=== PATIENT | male | born 1970 | race Caucasian/White ===

== ENCOUNTER → 2016-10-22 | Outpatient (CLI) | payer OTHER ==
[~2016-10-22] MED LIST: BUSP5TAB59 PO; CALC500C70 PO; ESCI10TA17 PO; IBUP-1428 PO; MULT-506 PO
[2016-10-22 17:06] LABS: CHOLESTEROL/HDL RATIO 4.6; THYROID STIMULATING HORMONE 1.36 uIu/ml (0.300-4.500)
== END | disposition home or self-care (01) ==
LOC: C.LABBC 14:31
PROVIDERS: ATTEND Family Medicine
DX: E78.5 Hyperlipidemia, unspecified (principal); Z13.1 Encounter for screening for diabetes mellitus; R63.5 Abnormal weight gain

== ENCOUNTER → 2016-12-11 | Outpatient (CLI) | payer OTHER ==
--- NOTE | 2016-12-11 15:16 | DIAGNOSTIC IMAGING REPORT ---
L-SPINE MIN 4 VIEWS ROUTINE CLINICAL HISTORY: Low back pain COMPARISON STUDY: No previous studies for comparison. FINDINGS: There is a grade 1 spondylolisthesis of L4 on L5. No acute fractures are visualized. There are no erosive or destructive changes. IMPRESSION: 1. No acute fractures 2. Grade 1 spondylolisthesis of L4 on L5. Electronically signed by: Benjamin Davidson M.D. 12/11/2016 3:14 PM Dictated Date/Time: 12/11/2016 3:13 PM
== END | disposition home or self-care (01) ==
LOC: C.RADBC 14:56
PROVIDERS: ATTEND Family Medicine
DX: M51.36 Other intervertebral disc degeneration, lumbar region (principal); M43.16 Spondylolisthesis, lumbar region

== ENCOUNTER → 2017-02-16 | Outpatient (CLI) | payer OTHER ==
[~2017-02-16] MED LIST changes: -BUSP5TAB59 PO; -ESCI10TA17 PO; +GADAVIST IV PRN
--- NOTE | 2017-02-16 18:34 | DIAGNOSTIC IMAGING REPORT ---
Study: MRI pelvis HISTORY: Pain. Posttraumatic pain. FINDINGS: Signal characteristics the osseous structures are unremarkable. The hips are symmetric. No significant joint effusion. No abnormal mass or collection. Sacroiliac joints are unremarkable. Soft tissue structures of the pelvis are unremarkable. There is no evidence for adenopathy mass or collection. Bowel pattern is nonobstructive. IMPRESSION: Negative study Electronically signed by: Fritz Cooley M.D. 02/16/2017 6:33 PM Dictated Date/Time: 02/16/2017 6:32 PM
--- NOTE | 2017-02-16 18:56 | DIAGNOSTIC IMAGING REPORT ---
MRI right knee RIGHT LOWER EXTREMITY JOINT COM CLINICAL HISTORY: M21.371 Right foot dropG57.30 Peroneal neuropathy Right knee for Right pain TECHNIQUE: MRI multi axial acquisition COMPARISON STUDY: None FINDINGS: Signal characteristics the osseous structures are unremarkable. There is no bone marrow replacing process. There is minimal degenerative change of the matrix of the articular services of the lateral tibial plateau. There is no joint effusion. There is no popliteal cyst. Anterior and posterior cruciate ligaments are intact. Collateral ligaments are unremarkable. The menisci are within normal limits. IMPRESSION: Mild degenerative change of the articular surface lateral tibial plateau. 2. Otherwise negative study. 3. No evidence for abnormal postcontrast enhancement. Electronically signed by: Fritz Cooley M.D. 02/16/2017 6:54 PM Dictated Date/Time: 02/16/2017 6:50 PM
== END | disposition home or self-care (01) ==
LOC: C.MRI 16:16
PROVIDERS: ATTEND Psychiatry & Neurology Neurology
DX: G57.30 Lesion of lateral popliteal nerve, unspecified lower limb (principal); M21.371 Foot drop, right foot; M54.30 Sciatica, unspecified side

== ENCOUNTER → 2017-03-04 | Outpatient (CLI) | payer OTHER ==
[~2017-03-04] MED LIST changes: +BUSP5TAB59 PO; +ESCI10TA17 PO; -GADAVIST IV PRN; -IBUP-1428 PO
[2017-03-04 17:28] LABS: BASO % 0.4 %; BASO ABS # 0.03 K/uL (0-0.2); COMPLETE YES; EOS % 2.1 %; HEMATOCRIT 47.2 % (42-52); IG% 0.1 %; LYMPH % 33.8 %; LYMPH ABS # 2.41 K/uL (1.2-3.4); MEAN CELL VOLUME 87.4 fL (80-100); MEAN CORPUSCULAR HEMOGLOBIN 29.3 pg (25-34); MEAN CORPUSCULAR HGB CONC 33.5 g/dl (32-36); MEAN PLATELET VOLUME 10.3 fL (7.4-10.4); MONO % 11.8 %; NEUT % 51.8 %; PLATELET COUNT 244 K/uL (130-400); WHITE BLOOD COUNT 7.14 K/uL (4.8-10.8)
== END | disposition home or self-care (01) ==
LOC: C.LABBC 14:44
PROVIDERS: ATTEND Orthopaedic Surgery Orthopaedic Surgery of the Spine
DX: Z01.818 Encounter for other preprocedural examination (principal)

== ENCOUNTER 2017-04-01 09:46 | Inpatient (IN) | payer OTHER ==
[2017-03-02 15:59] VITALS: BMI 41.0
[~2017-04-01] VITALS: Ht 188 cm; Wt 149.5 kg
[2017-04-01] VITALS (11 sets, daily range): BP systolic 118–150; BP diastolic 71–92; PULSE 72–90; TEMP 36.4–37; O2SAT 95–100; Ht 188 cm; Wt 149.5 kg
[~2017-04-01 09:46] MED LIST changes: +ATROPINE SULFATE 0.1 MG/ML 5ML SYR IV PRN; +CEFAZOLIN 3000 MG/65 ML D5W 65 ML IV SCH; +DEXAMETHASONE SOD INJ 4 MG/ML VIAL ONE; +EpHEDrine SULFATE INJ 50 MG/ML AMP IV PRN; +FENTANYL CITRATE INJ 50 MCG/1 ML 2 ML VIAL IV PRN; +FENTANYL CITRATE INJ 50 MCG/1 ML 2 ML VIAL ONE; +GLYCOPYRROLATE INJ 0.2 MG/ML VIAL ONE; +HYDROmorphone INJ 1 MG/ML SYR IV PRN; +LABETALOL HCL IV 5 MG/ML 20ML IV PRN; +LACTATED RINGER'S 1000ML 1,000 ML IV SCH; +LACTATED RINGER'S 1000ML IV SCH; +LARYING-O-JET KIT (LTA) ONE; +LIDOCAINE HCL 2% 2 ML VIAL (20MG/ML) ONE; +MEPERIDINE HCL 25 MG/ML CARP IV PRN; +MIDAZOLAM HCL 1 MG/ML 2ML VIAL ONE; +NEOSTIGMINE METHYLSULFATE 5 MG/5 ML SYR ONE; +ONDANSETRON INJ 2 MG/ML 2 ML VIAL IV PRN; +ONDANSETRON INJ 2 MG/ML 2 ML VIAL ONE; +PROPOFOL IV EMULSION 10 MG/ML 20 ML VIAL IV ONE; +ROCURONIUM BROMIDE 10 MG/ML 5 ML VIAL ONE; +SODIUM CHLORIDE 0.9% 1000ML 1,000 ML IV SCH
[2017-04-01] MEDS ORDERED: GELATIN SPONGE SZ 100 ONE ×2 (09:57→11:35)
[2017-04-01] MEDS ORDERED: THROMBIN FOR SOLN 20000 UNIT KIT ONE (09:57)
[2017-04-01] MEDS ORDERED: BACITRACIN 50000 UNIT VIAL ONE (09:58)
[2017-04-01] MEDS ORDERED: VANCOMYCIN HCL 1000MG/20ML VIAL ONE (09:58)
[2017-04-01] MEDS ORDERED: BUPIVACAINE/EPINEPHRINE 0.5% MPF 1:200,000 10 ML VIAL ONE (09:58)
[2017-04-01] MEDS ORDERED: HYDROmorphone INJ 2 MG/ML SYR/VIAL ONE (11:19)
[2017-04-01] MEDS ORDERED: ROCURONIUM BROMIDE 10 MG/ML 5 ML VIAL ONE (11:21)
[2017-04-01] MEDS ORDERED: EpHEDrine SULFATE 50MG/5ML SYR ONE (11:23)
--- NOTE | 2017-04-01 13:08 | DIAGNOSTIC IMAGING REPORT ---
LUMBAR SPINE, INTRAOPERATIVE FLUOROSCOPY HISTORY: L4-L5 interbody fusion. FLUOROSCOPY TIME: 7 seconds. FINDINGS: Intraoperative fluoroscopy was provided for the lumbar spine. A single fluoroscopic spot image of the lower lumbar spine. Posterior decompression and fusion at L4-L5 with pedicle screws and rods. The hardware appears intact. IMPRESSION: Fluoroscopy provided for a L4-5 posterior decompression and fusion. Electronically signed by: Roberto Art M.D. 04/01/2017 1:06 PM Dictated Date/Time: 04/01/2017 1:05 PM
[2017-04-01] MEDS ORDERED: SODIUM CHLORIDE 0.9% 1000ML 1,000 ML IV SCH (13:37)
--- NOTE | 2017-04-01 13:38 | [facility] Post Operative Brief Note ---
Immediate Operative Summary Operative Date Apr 01, 2017. Pre-Operative Diagnosis Lumbar degenerative disc disease Post-Operative Diagnosis Lumbar degenerative disc disease Procedure(s) Performed L4-L5 Posterior Lumbar Interbody Fusion Surgeon Dr. Eliazar Felipe [employer] Consultant Surgeon(s) David Mancia PA-C Estimated Blood Loss 250ml Findings spondy L4-5 Specimens None per surgeon Complication(s) None Disposition Recovery Room / PACU
--- NOTE | 2017-04-01 13:42 | History and Physical ---
History & Physical Date Apr 01, 2017. History of Present Illness The patient is a 46 year old male with complaints of back and leg pain Past Medical/Surgical History Medical Problems: (1) HTN (hypertension) (2) Lumbar disc herniation (3) No chronic problems Surgical Problems: (1) No history of previous surgery Allergies Coded Allergies: No Known Allergies (Unverified , 04/01/17) Home Medications Scheduled Calcium/Vitamin D (Os-Christian 500 Plus D), 1 TAB PO QAM Escitalopram (Lexapro), 10 MG PO QPM Multivitamin (Multivitamin), 1 TAB PO QAM Scheduled PRN Buspirone Hcl (Buspirone Hcl), 1 TAB PO BID PRN for ANXIETY Physical Examination Skin: warm/dry Eyes: normal inspection ENT: normal ENT inspection Head: normocephalic Neck: supple Respiratory/Chest: lungs clear Cardiovascular: regular rate, rhythm Abdomen / GI: normal bowel sounds Back: normal inspection Extremities: normal inspection Genitourinary - Male: normal male genitalia Diagnosis stenosis and listhesis l4-5 ASA Classification: ASA Class III Plan of Treatment plif l4-5
[2017-04-01] MEDS ORDERED: ONDANSETRON INJ 2 MG/ML 2 ML VIAL IV PRN (13:45)
[2017-04-01] MEDS ORDERED: PROMETHAZINE HCL INJ 12.5 MG in SODIUM CHLORIDE 0.9% 50ML 50 ML IV PRN (13:45)
[2017-04-01] MEDS ORDERED: LORAZEPAM INJ 1 MG in SYRINGE 0.5 ML IV PRN (13:45)
[2017-04-01] MEDS ORDERED: NALOXONE HCL 0.4 MG/1 ML VIAL/CARP IV PRN (13:45)
[2017-04-01] MEDS ORDERED: LORAZEPAM 1 MG TAB PO PRN (13:45)
[2017-04-01] MEDS ORDERED: METOCLOPRAMIDE HCL INJ 5 MG/ML 2 ML VIAL IV PRN (13:45)
[2017-04-01] MEDS ORDERED: MAGNESIUM HYDROXIDE SUSP 30 ML UDC PO PRN (13:45)
[2017-04-01] MEDS ORDERED: ACETAMINOPHEN 325 MG TAB PO PRN (13:45)
[2017-04-01] MEDS ORDERED: HYDROmorphone HCL 0.5MG/ML 50 ML CASSETTE ONE (13:51)
--- NOTE | 2017-04-01 14:03 | OPERATIVE REPORT ---
DATE OF OPERATION: 04/01/2017 PREOPERATIVE DIAGNOSIS: Stenosis, spondylolisthesis, lumbar spine L4-L5. POSTOPERATIVE DIAGNOSIS: Same. PROCEDURE: Include a decompression laminectomy, foraminotomy, L4-L5 lumbar spine, pedicle screw instrumentation L4-L5 lumbar spine, discectomy lumbar spine L4-L5, posterior lumbar interbody fusion and circumferential 360 fusion. SURGEON: Dr. Felipe. INVESTOR RELATIONS ASSOCIATE: David Mancia PA-C. COMPLICATIONS: 0. PROCEDURE: The patient was taken to the operating room, general intubated and anesthetic provided to the patient. Simmons catheter administered. Antibiotics administered. He was placed prone with care. He was morbidly obese but we got him safely placed on the Edward table. We made skin incision, fascial incision and came down on the spine. It was obvious he had a spondylosis, complete pars defect of the spine. We took out the posterior elements doing a Hough procedure, foraminotomies, partial facetectomies. We decompressed each nerve root which would be 4-5 left, 4-5 right. I was pleased with the decompression. We safely got pedicle screws into the patient as well, 5 on the right, 4 on the right and then the opposite side as well. We carefully took the dura in a medial direction. I did a formal discectomy, able to get an interbody device into the construct measuring 26 mm in length, 11 mm in height and 10 mm in width. We then bone grafted out over the transverse processes well, completed the 360 fusion. We locked down the construct. The construct was by the eeden. Irrigated, closed in layers over vancomycin powder, Hemovac drain with 1 Vicryl suture, 2-0 Vicryl suture over vancomycin powder, 3-0 nylon on the skin, sterile dressing applied. The patient was then returned to PACU in improved stable condition. No apparent complication. Sponge and needle count correct. Implants used were by eeden. I attest to the content of the Intraoperative Record and any orders documented therein. Any exception s are noted below.
[2017-04-01] MEDS: HYDROmorphone HCL 0.5MG/ML 50 ML CASSETTE IV PRN ×3 (14:39→23:24)
--- NOTE | 2017-04-01 14:52 | Anesthesiology Progress Note ---
Anesthesia Post Op Note Date & Time Apr 01, 2017 at 14:51 Vital Signs Pain Intensity: 5.0 Vital Signs Past 12 Hours Date Time Temp Pulse Resp B/P (MAP) Pulse Ox O2 Delivery O2 Flow Rate FiO2 04/01/17 14:47 99 Nasal Cannula 4.0 04/01/17 14:35 36.9 76 18 125/74 (91) 100 Nasal Cannula 4.0 04/01/17 14:25 77 13 134/66 98 Nasal Cannula 4 04/01/17 14:15 36.2 66 20 113/63 93 Nasal Cannula 4 04/01/17 14:05 70 16 131/68 97 Nasal Cannula 4 04/01/17 13:55 79 20 140/64 97 Nasal Cannula 4 04/01/17 13:45 83 16 133/61 95 Oxymask 10 04/01/17 13:36 36.1 75 20 134/69 96 Oxymask 10 04/01/17 10:07 37 73 20 150/92 (111) 95 Room Air Notes Mental Status: alert / awake / arousable, participated in evaluation Pt Amnestic to Procedure: Yes Nausea / Vomiting: adequately controlled Pain: adequately controlled Airway Patency, RR, SpO2: stable & adequate BP & HR: stable & adequate Hydration State: stable & adequate Anesthetic Complications: no major complications apparent
[2017-04-01 15:08] LABS: HEMATOCRIT 44.1 % (42-52)
[2017-04-01] MEDS: SODIUM CHLORIDE 0.9% 1000ML 1,000 ML IV SCH (15:56)
[2017-04-01] MEDS: KETOROLAC TROMETHAMINE 30 MG/ML VIAL IV SCH ×2 (16:11→22:19)
[2017-04-01] MEDS: DEXAMETHASONE INJ 10 MG in SYRINGE 0 ML IV SCH (16:11)
[2017-04-01] MEDS: CEFAZOLIN IV 2,000 MG in DEXTROSE 5% 50ML 50 ML IV SCH (17:56)
[2017-04-01] MEDS: ESCITALOPRAM OXALATE 10 MG TAB PO SCH (22:18)
[2017-04-02] VITALS (8 sets, daily range): BP systolic 114–138; BP diastolic 68–81; PULSE 58–86; TEMP 36.5–36.8; O2SAT 92–99
[2017-04-02] MEDS: DEXAMETHASONE INJ 10 MG in SYRINGE 0 ML IV SCH ×4 (00:17→23:40)
[2017-04-02] MEDS: CEFAZOLIN IV 2,000 MG in DEXTROSE 5% 50ML 50 ML IV SCH ×2 (02:58→10:12)
[2017-04-02] MEDS: SODIUM CHLORIDE 0.9% 1000ML 1,000 ML IV SCH (02:58)
[2017-04-02] MEDS: KETOROLAC TROMETHAMINE 30 MG/ML VIAL IV SCH ×3 (02:58→16:02)
[2017-04-02] MEDS ORDERED: DC PCA SCH (06:00)
[2017-04-02] MEDS ORDERED: BISACODYL 5 MG TABEC PO PRN (06:00)
[2017-04-02] MEDS ORDERED: BISACODYL 10 MG SUPP PR PRN (06:00)
[2017-04-02] MEDS ORDERED: NURSING DECISION MEDICATION ORDER SCH (06:45)
[2017-04-02] MEDS ORDERED: HYDROmorphone INJ 2 MG/ML SYR/VIAL IV PRN ×2 (07:15→08:00)
[2017-04-02] MEDS ORDERED: OXYCODONE/ACETAMINOPHEN 5-325 TAB PO PRN ×4 (07:15→08:00)
[2017-04-02] MEDS ORDERED: HYDROmorphone INJ 1 MG/ML SYR IV PRN ×2 (07:15→08:00)
--- NOTE | 2017-04-02 08:19 | Anesthesiology Progress Note ---
Anesthesia Post Op Note Date & Time Apr 02, 2017 at 08:19 Vital Signs Vital Signs Past 12 Hours Date Time Temp Pulse Resp B/P (MAP) Pulse Ox O2 Delivery O2 Flow Rate FiO2 04/02/17 07:56 96 Room Air 04/02/17 07:48 Room Air 04/02/17 07:36 36.7 86 18 118/74 (89) 96 Room Air 04/02/17 06:20 94 Room Air 04/02/17 03:04 36.6 62 16 123/68 (86) 99 Nasal Cannula 4.0 04/02/17 00:13 Nasal Cannula 4.0 04/01/17 23:32 36.5 73 16 130/74 (92) 96 Nasal Cannula 4.0 Notes Mental Status: alert / awake / arousable, participated in evaluation Pt Amnestic to Procedure: Yes Nausea / Vomiting: adequately controlled Pain: adequately controlled Airway Patency, RR, SpO2: stable & adequate BP & HR: stable & adequate Hydration State: stable & adequate Anesthetic Complications: no major complications apparent
[2017-04-02] MEDS: POLYETHYLENE (MIRALAX) 17 GM PACK PO SCH (08:23)
[2017-04-02] MEDS: CALCIUM 600MG + VIT D 400 IU TAB PO SCH (08:23)
[2017-04-02] MEDS: MULTIVITAMIN TAB PO SCH (08:23)
--- NOTE | 2017-04-02 12:34 | Discharge Instructions ---
Discharge Instructions Date of Service Apr 02, 2017. Admission Reason for Admission: Lumbar Spinal Stenosis spondylolisthesis Discharge Discharge Diagnosis / Problem: and spondylolistesis Discharge Goals Goal(s): Improve function Activity Recommendations Activity Limitations: as noted below Lifting Limitations: gradually increase as tolerated, until after follow-up appointment Exercise/Sports Limitations: until after follow-up appointment May Resume Sexual Activity: after follow-up appointment Shower/Bathe: keep incision dry . Instructions / Follow-Up Instructions / Follow-Up MEDICATIONS: Please take your prescriptions as instructed at your pre-op appointment. SPECIAL CARE: The following information is intended to answer some of the common questions and concerns regarding your surgery. Each patient is an individual and receives individual counselling throughout the course of treatment, from diagnosis to surgery all the way through recovery. What follows is not an exhaustive list, but should be a useful guide to some of the common questions and concerns patients have regarding their surgeries. These are not provided to keep you from calling us; rather, they give you something accurate and concrete to reference as you recover from your procedure. If you need us, we are available to you. As always, if you are not sure about something, call us at [phone]. MEDICAL EMERGENCIES: For these conditions, call 911 or go to your local hospital-based Emergency Department - not [facility] or equivalent. * Paralysis * Severe chest pain or difficulty breathing * Swelling or redness of either leg Spine procedures can be rather complex and though complications are rare, they do occur. In such cases, effective advice regarding emergency situations cannot always be addressed over the telephone. You may be referred to the emergency department for more effective management of your problem. Activity Limitations: It is important to give your body time to heal, so please limit your activities : * In general, don't do anything that moves your spine too much. You should avoid contact sports, twisting or heavy lifting while you recover. * 5-10 pounds is all you should attempt to lift. * You should not plan on driving for approximately 3 weeks and you should avoid traveling more than 30-45 minutes at a time. Longer trips should be broken down with walking breaks spaced appropriately. * Physical therapy is not usually required. * Walking and good posture practices will help you recover and regain your function. * Avoid straining or sudden changes in position. * In general, the goal is to take it easy and recover. Don't cause any new problems. Just relax. Showers: * Do not take a bath, use a Jacuzzi or hot tub or otherwise submerge your incision. * It is usually safe to take a shower 4-5 days after your surgery. * Your incision does not require any special creams or ointments. * Simply clean it with soap and water, dry and re-dress with a clean bandage afterwards. Incision: * Keep incision clean, dry and protected until your first follow-up appointment. * Some amount of drainage and redness is normal. Any drainage should be fairly clear and not have a foul odor. * If you feel anything is wrong or you have excessive drainage, please call us. * Your stitches and taiwo will be removed 10-14 days after your surgery. At the time of your first post-op visit. * Neck surgeries are typically closed with a suture underneath the skin. The steri-strips over the incision should be maintained until we see you in the office. Bracing: * You may be provided with a back or neck brace to encourage good posture and prevent injury. It will remind you not to do too much as you heal and will alert others to the fact that you have had a surgery. * Back braces may be removed for showers and when you are resting at home. They must be worn when you are walking around for any period of time or for travel. * For neck surgery, you will likely be provided with two cervical collars. The soft collar ([place] or foam rubber) is worn most commonly throughout the day and while sleeping. The plastic collar (provided at the hospital) is for showering/bathing. * Except while eating, collars should remain in place. More specifically, bracing is provided for a purpose and should be worn. * Please obtain your brace or collars prior to your operation and bring them to the hospital with you on the day of surgery. * You should also bring your collars to your post-op appointment with Dr. Felipe. You should always take good care of your body and practice healthy habits, especially following surgery. You should: * Follow your doctor's treatment plan * Sit and stand properly with good posture (ears over shoulders, shoulders over hips) Don't slouch * Learn to lift correctly * Exercise regularly (low-impact aerobic exercise is especially good, but check with your doctor first) * Generally, be up and walking for 5-10 minutes at a time at least 3-4 times per day from the day you get home * Increasing walking to tolerance until you can walk for 20-30 minutes at a time * Attain and maintain a healthy body weight * Eat healthy foods ( a well-balanced, low-fat diet rich in fruits and vegetables) and get enough calcium * Avoid excessive use of alcohol When to call our office - If you notice any of the following: * Increased pain not relieve by pain medicine * Fevers greater then 100 degrees F, chills or flu symptoms * Increased redness around incision * Drainage from the incision that is not clear * Any foul smelling drainage * Swelling or fluid collection beneath the skin Miscellaneous: * In the hospital, you may be given a walker or cane for support while walking. These are temporary needs and are intended to prevent injuries due to falls. You may discontinue them when you feel strong and steady enough on your feet. * Sleep in a comfortable position. We find that many patients find a lounge chair or recliner with several pillows to be beneficial in the early post-operative period. * The support stockings should be used for 7-10 days and may be discontinued when you are back to walking more and conducting usual household activities. No problem is insignificant. We are here to help you and get you well. Contact us at [phone]. Definitions: Foraminotomy: If part of the disc or a bone spur (osteophyte) is pressing on a nerve as it leaves the vertebra (through an exit called the foramen), a foraminotomy may be done. Otomy means "to make an opening." A foraminotomy is making the opening of the foramen larger, so the nerve can exit without being compressed. Laminotomy: Similar to the foraminotomy, a laminotomy makes a larger opening, this time in your bony plate protecting your spinal canal and spinal cord (the lamina). The lamina may be pressing on your nerve, so the surgeon may make more room for the nerves using a laminotomy. Laminectomy: Sometimes, a laminotomy is not sufficient. The surgeon may need to remove all or part of the lamina. This procedure is called a laminectomy. This can often be done at many levels without any harmful effects. Current Hospital Diet Patient's current hospital diet: Regular Diet Discharge Diet Recommended Diet: Regular Diet Procedures Procedures Performed: L4-L5 Posterior Lumbar Interbody Fusion Pending Studies Studies pending at discharge: no Medical Emergencies . Who to Call and When: Medical Emergencies: If at any time you feel your situation is an emergency, please call 911 immediately. . Non-Emergent Contact Non-Emergency issues call your: Primary Care Provider . "Provider Documentation" section prepared by Eliazar Felipe. . VTE Core Measure Inpt VTE Proph given/why not?: Treatment not indicated
[2017-04-02] MEDS: ESCITALOPRAM OXALATE 10 MG TAB PO SCH (22:12)
[2017-04-03 07:17] VITALS: BP 146/87; PULSE 69; TEMP 36.4; O2SAT 94
[2017-04-03] MEDS: CALCIUM 600MG + VIT D 400 IU TAB PO SCH (08:13)
[2017-04-03] MEDS: POLYETHYLENE (MIRALAX) 17 GM PACK PO SCH (08:13)
[2017-04-03] MEDS: MULTIVITAMIN TAB PO SCH (08:13)
--- NOTE | 2017-04-03 08:24 | DISCHARGE SUMMARY ---
SUBJECTIVE: Minimal complaints of pain. Alert, oriented. No chest pain, shortness of breath. Bowel and bladder function appropriately. ASSESSMENT: Status post lumbar spine fusion, doing well in the short run. DISPOSITION: Includes discharge home today. Instructions and precautions provided, prescriptions provided. Followup examination will be in the office in approximately 2 weeks.
[2017-04-03 08:33] VITALS: BP 146/87; PULSE 69; TEMP 36.4; O2SAT 94
== END 2017-04-03 10:45 | disposition home or self-care (01) | DRG 460 ==
LOC: C.ACU 09:46 → C.3E 13:43 → ENRESERV 14:20
PROVIDERS: ADMIT Orthopaedic Surgery Orthopaedic Surgery of the Spine; ATTEND Orthopaedic Surgery Orthopaedic Surgery of the Spine
PROC: 0SG00AJ Fusion of Lumbar Vertebral Joint with Interbody Fusion Device, Posterior Approach, Anterior Column, Open Approach (ICD-10-PCS; principal; 2017-04-01 11:00)
PROC: 0ST20ZZ Resection of Lumbar Vertebral Disc, Open Approach (ICD-10-PCS; principal; 2017-04-01 11:00)
PROC: 0SG0071 Fusion of Lumbar Vertebral Joint with Autologous Tissue Substitute, Posterior Approach, Posterior Column, Open Approach (ICD-10-PCS; principal; 2017-04-01 11:00)
DX: M48.06 Spinal stenosis, lumbar region (principal); M43.16 Spondylolisthesis, lumbar region; E66.9 Obesity, unspecified

== ENCOUNTER → 2017-10-19 | Outpatient (CLI) | payer OTHER ==
[~2017-10-19] MED LIST changes: -ATROPINE SULFATE 0.1 MG/ML 5ML SYR IV PRN; -CEFAZOLIN 3000 MG/65 ML D5W 65 ML IV SCH; -DEXAMETHASONE SOD INJ 4 MG/ML VIAL ONE; -EpHEDrine SULFATE INJ 50 MG/ML AMP IV PRN; -FENTANYL CITRATE INJ 50 MCG/1 ML 2 ML VIAL IV PRN; -FENTANYL CITRATE INJ 50 MCG/1 ML 2 ML VIAL ONE; -GLYCOPYRROLATE INJ 0.2 MG/ML VIAL ONE; -HYDROmorphone INJ 1 MG/ML SYR IV PRN; -LABETALOL HCL IV 5 MG/ML 20ML IV PRN; -LACTATED RINGER'S 1000ML 1,000 ML IV SCH; -LACTATED RINGER'S 1000ML IV SCH; -LARYING-O-JET KIT (LTA) ONE; -LIDOCAINE HCL 2% 2 ML VIAL (20MG/ML) ONE; -MEPERIDINE HCL 25 MG/ML CARP IV PRN; -MIDAZOLAM HCL 1 MG/ML 2ML VIAL ONE; -NEOSTIGMINE METHYLSULFATE 5 MG/5 ML SYR ONE; -ONDANSETRON INJ 2 MG/ML 2 ML VIAL IV PRN; -ONDANSETRON INJ 2 MG/ML 2 ML VIAL ONE; -PROPOFOL IV EMULSION 10 MG/ML 20 ML VIAL IV ONE; -ROCURONIUM BROMIDE 10 MG/ML 5 ML VIAL ONE; -SODIUM CHLORIDE 0.9% 1000ML 1,000 ML IV SCH
--- NOTE | 2017-10-19 16:00 | DIAGNOSTIC IMAGING REPORT ---
CHEST 2 VIEWS ROUTINE CLINICAL HISTORY: Cough. COMPARISON STUDY: Chest radiograph June 07, 2015. FINDINGS: Lung volumes are normal. No pneumothorax or pleural effusion is noted. No evidence for pulmonary edema. There is no consolidation. Cardiomediastinal silhouette is normal. IMPRESSION: No acute cardiopulmonary findings. Electronically signed by: Dominik Cam M.D. 10/19/2017 3:58 PM Dictated Date/Time: 10/19/2017 3:58 PM
== END | disposition home or self-care (01) ==
LOC: C.RADBC 15:40
PROVIDERS: ATTEND Physician Assistant Medical
DX: R05 Cough (principal); R04.2 Hemoptysis

== ENCOUNTER → 2017-10-29 | Outpatient (CLI) | payer OTHER ==
[2017-10-29 17:42] LABS: ALBUMIN 3.6 gm/dl (3.4-5.0); ALT/SGPT 30 U/L (12-78); AST/SGOT 16 U/L (15-37); BLOOD UREA NITROGEN 14 mg/dl (7-18); CARBON DIOXIDE 28 mmol/L (21-32); CHOLESTEROL 205 mg/dl (0-200); CREATININE 1.06 mg/dl (0.60-1.40); GLUCOSE 77 mg/dl (70-99); POTASSIUM 3.8 mmol/L (3.5-5.1); SODIUM 137 mmol/L (136-145)
[2017-10-29 17:45] LABS: ALKALINE PHOSPHATASE 103 U/L (45-117); LDL CHOLESTEROL CALCULATED 144 mg/dl; TOTAL PROTEIN 8.2 gm/dl (6.4-8.2)
== END | disposition home or self-care (01) ==
LOC: C.LAB1850 16:27
PROVIDERS: ATTEND Nurse Practitioner Adult Health
DX: E78.5 Hyperlipidemia, unspecified (principal)